=== PATIENT | female | born 1985 | race Caucasian/White ===

== ENCOUNTER 2017-01-21 22:38 | Emergency (ER) | payer OTHER ==
[~2017-01-21] VITALS: Ht 175.3 cm; Wt 137.8 kg
[2017-01-21 23:44] LABS: BILIRUBIN,URINE NEG (NEG); CLARITY,URINE CLOUDY; COLOR,URINE RED; GLUCOSE,URINE NEG (NEG)
[2017-01-21 23:45] LABS: BACTERIA,URINE 0 /HPF (0-FEW); NITRITE,URINE NEG (NEG); RBC,URINE TNTC /HPF (0-2); SQUAMOUS EPITHELIAL CELL,UR OCC /LPF; UROBILINOGEN,URINE 0.2 mg/dL (0.2 mg/dL); WBC,URINE OCC /HPF (0-4)
[2017-01-21 23:46] LABS: U PREG PATIENT NEGATIVE (NEG)
[2017-01-22 01:22] LABS: BASO # 0.1 x10^3/uL (0.0-0.2); BASO % 1 % (0-3); EOS % 0 % (0-3); HEMATOCRIT 34.2 % (36.0-47.0); HEMOGLOBIN 10.9 g/dL (12.0-15.5); LYMPH # 3.4 x10^3/uL (1.0-4.8); LYMPH % 33 % (24-48); MEAN CORPUSCULAR HEMOGLOBIN 24 pg (25-35); MEAN CORPUSCULAR HGB CONC 32 g/dL (31-37); MEAN CORPUSCULAR VOLUME 74 fL (79-100); MONO # 0.5 x10^3/uL (0.0-1.1); MONO % 4 % (0-9); NEUT # 6.4 x10^3uL (1.8-7.7); NEUT % 62 % (31-73); PLATELET COUNT 347 x10^3/uL (140-400); WHITE BLOOD COUNT 10.4 x10^3/uL (4.0-11.0)
[2017-01-22 01:25] LABS: CALCIUM 8.8 mg/dL (8.5-10.1); CREATININE 0.7 mg/dL (0.6-1.0); GFR 98.3
[2017-01-22 01:49] VITALS: BP 143/85
--- NOTE | 2017-01-22 03:11 | ED.ADGEN ---
Adult General [facility] HPI Patient is a 31-year-old woman, history of PCOS, for which takes control pills, and anemia secondary to vaginal bleeding, presents to the emergency department with a complaint of heavy vaginal bleeding over the past 3 days. Patient states that she has been taking Notrelle control, 3 tablets daily as directed by her primary care provider, Dr. Veras, without improvement of symptoms. She states that she is soaking through both tampons and pads she is using together, sometimes in about an hour and a half. Patient states that she has felt slightly lightheaded with the bleeding, but denies any syncope, denies any chest pain or shortness breath, any nausea or vomiting. Is experiencing cramping pains in her lower abdomen. She denies any injuries, any urinary complaints, any concerns for STI exposures. She states she has not spoken her primary care provider about these episodes of bleeding. She states that her hemoglobin tends to run in the nines and that she last was transfused several years ago after similar episodes of vaginal bleeding. Review of Systems Review of Systems Constitutional: Denies fever or chills [] Eyes: Denies change in visual acuity, redness, or eye pain [] HENT: Denies nasal congestion or sore throat [] Respiratory: Denies cough or shortness of breath [] Cardiovascular: No additional information not addressed in HPI [] GI: Denies nausea, vomiting, bloody stools or diarrhea. Abdominal cramping, vaginal bleeding. : Denies dysuria or hematuria [] Musculoskeletal: Denies back pain or joint pain [] Integument: Denies rash or skin lesions [] Neurologic: Denies headache, focal weakness or sensory changes [] Endocrine: Denies polyuria or polydipsia [] Allergies Allergies Allergies Coded Allergies Type Severity Reaction Last Updated Verified No Known Drug Allergies 01/22/17 No Physical Exam Physical Exam Constitutional: Well developed, well nourished, no acute distress, non-toxic appearance. [] HENT: Normocephalic, atraumatic, bilateral external ears normal, oropharynx moist, no oral exudates, nose normal. [] Eyes: PERRLA, EOMI, conjunctiva normal, no discharge. [] Neck: Normal range of motion, no tenderness, supple, no stridor. [] Cardiovascular:Heart rate regular rhythm, no murmur, S1, S2, no rubs or gallops. [] Lungs & Thorax: Bilateral breath sounds clear to auscultation no wheezing, rhonchi, rales. No chest wall crepitus or tenderness. [] Abdomen: Bowel sounds normal, soft, obese, mild initial patient in the pelvic region, no rebound, rigidity, no guarding, no masses, no pulsatile masses. [] Skin: Warm, dry, no erythema, no rash. [] Back: No tenderness, no CVA tenderness. [] Extremities: No tenderness, no cyanosis, no clubbing, ROM intact, no edema. [] Neurologic: Alert and oriented X 3, normal motor function, normal sensory function, no focal deficits noted. [] Psychologic: Affect normal, judgement normal, mood normal. [] examination: Patient noted to have small amount of dark clot in the labia minora, no signs of trauma, no lesions, external examination is otherwise unremarkable. Bimanual examination reveals dark blood on glove, tenderness to palpation but no CMT, with motion of the uterus. Os is open, internal and external, fingertip. Speculum examination reveals a small amount of dark clots in the vaginal vault, cleared with the Q-tip, os is normal in appearance, no signs of lesions or trauma. No active bleeding during my examination. Current Patient Data Lab Results Laboratory Tests Test 01/21/17 22:52 01/22/17 00:40 Urine Collection Type Unknown Urine Color Red Urine Clarity Cloudy Urine pH 6.0 Urine Specific [place] >=1.030 Urine Protein >100 mg/dl (NEG-TRACE) Urine Glucose (UA) Neg mg/dL (NEG) Urine Ketones (Stick) Neg mg/dL (NEG) Urine Blood Large (NEG) Urine Nitrite Neg (NEG) Urine Bilirubin Neg (NEG) Urine Urobilinogen Dipstick 0.2 mg/dL (0.2 mg/dL) Urine Leukocyte Esterase Trace (NEG) Urine RBC Tntc /HPF (0-2) Urine WBC Occ /HPF (0-4) Urine Squamous Epithelial Cells Occ /LPF Urine Bacteria 0 /HPF (0-FEW) Urine Test Negative (NEG) White Blood Count 10.4 x10^3/uL (4.0-11.0) Red Blood Count 4.60 x10^6/uL (3.50-5.40) Hemoglobin 10.9 g/dL (12.0-15.5) L Hematocrit 34.2 % (36.0-47.0) L Mean Corpuscular Volume 74 fL (79-100) L Mean Corpuscular Hemoglobin 24 pg (25-35) L Mean Corpuscular Hemoglobin Concent 32 g/dL (31-37) Red Cell Distribution Width 17.0 % (11.5-14.5) H Platelet Count 347 x10^3/uL (140-400) Neutrophils (%) (Auto) 62 % (31-73) Lymphocytes (%) (Auto) 33 % (24-48) Monocytes (%) (Auto) 4 % (0-9) Eosinophils (%) (Auto) 0 % (0-3) Basophils (%) (Auto) 1 % (0-3) Neutrophils # (Auto) 6.4 x10^3uL (1.8-7.7) Lymphocytes # (Auto) 3.4 x10^3/uL (1.0-4.8) Monocytes # (Auto) 0.5 x10^3/uL (0.0-1.1) Eosinophils # (Auto) 0.0 x10^3/uL (0.0-0.7) Basophils # (Auto) 0.1 x10^3/uL (0.0-0.2) Sodium Level 140 mmol/L (136-145) Potassium Level 4.0 mmol/L (3.5-5.1) Chloride Level 105 mmol/L (98-107) Carbon Dioxide Level 23 mmol/L (21-32) Anion Gap 12 (6-14) Blood Urea Nitrogen 9 mg/dL (7-20) Creatinine 0.7 mg/dL (0.6-1.0) Estimated GFR (Cockcroft-Gault) 98.3 Glucose Level 138 mg/dL (70-99) H Calcium Level 8.8 mg/dL (8.5-10.1) EKG EKG [] Radiology/Procedures Radiology/Procedures [] Course & Med Decision Making Course & Med Decision Making Pertinent Labs and Imaging studies reviewed. (See chart for details) I was able to clear the clots from the vaginal vault, however as soon as the patient stood back up, additional bleeding recur, os was open as stated. Patient 's hemoglobin resulted at 10.9, laboratory studies otherwise unremarkable aside from a glucose of 138, mildly elevated. I did discuss these findings with the patient, she is relieved to know that she will not require transfusion at this time, but continues to have bleeding from the vagina. No orthostasis, is well- appearing, and stable in the ED. I did speak with Dr. Rodriguez of [employer] [employer], discussed the fact of the patient's history of anemia, previous transfusion, currently alone, and persistence of bleeding with history of PCOS on the contraceptive pills, and 3 pills daily. He recommended the patient be admitted for IV estrogen. As the patient is stable in the emergency department, to be appropriate to discharge the patient from the emergency department, and have her present to [facility], he requested that the front office attendant staff in contact him for admission orders. I did discuss this with the patient and family at bedside, she is agreeable this plan, she remained stable in the emergency department, was instructed to proceed directly to [facility] for admission with plan as above. Patient discharged with her family with plan for admission as stated. Final Impression Final Impression [] Problems: Dragon Disclaimer Dragon Disclaimer This electronic medical record was generated, in whole or in part, using a voice recognition dictation system. Departure: Impression: Primary Impression: Dysfunctional uterine bleeding Additional Impressions: PCOS (polycystic ovarian syndrome) History of anemia Disposition: 01 HOME, SELF-CARE Condition: STABLE TIMI SERRANO DO Jan 22, 2017 03:11
== END 2017-01-22 01:56 | disposition home or self-care (01) ==
LOC: ER 22:38
DX: E28.2 Polycystic ovarian syndrome (principal); R42 Dizziness and giddiness; Z86.2 Personal history of diseases of the blood and blood-forming organs and certain disorders involving the immune mechanism
CPT/HCPCS: 36415; 80048; 81001; 81025; 85027; 99284

== ENCOUNTER 2017-08-20 13:05 | Emergency (ER) | payer OTHER ==
[~2017-08-20] VITALS: Ht 167.6 cm; Wt 132.4 kg
[2017-08-20] MEDS ORDERED: IV NORMAL SALINE 1,000ML 1,000 ML IV SCH (13:48)
[2017-08-20 14:17] LABS: BASO % 0 % (0-3); EOS % 0 % (0-3); HEMATOCRIT 32.8 % (36.0-47.0); HEMOGLOBIN 10.6 g/dL (12.0-15.5); LYMPH % 33 % (24-48); MEAN CORPUSCULAR HEMOGLOBIN 24 pg (25-35); MEAN CORPUSCULAR HGB CONC 32 g/dL (31-37); MEAN CORPUSCULAR VOLUME 74 fL (79-100); MONO # 0.5 x10^3/uL (0.0-1.1); MONO % 6 % (0-9); NEUT # 5.7 x10^3uL (1.8-7.7); NEUT % 61 % (31-73); PLATELET COUNT 375 x10^3/uL (140-400); RED BLOOD COUNT 4.46 x10^6/uL (3.50-5.40); RED CELL DISTRIBUTION WIDTH 16.3 % (11.5-14.5); WHITE BLOOD COUNT 9.2 x10^3/uL (4.0-11.0)
[2017-08-20 14:33] LABS: PREG TEST PT QUAL NEGATIVE (NEG)
[2017-08-20 14:36] LABS: ALBUMIN 3.3 g/dL (3.4-5.0); ALBUMIN/GLOBULIN RATIO 0.7 (1.0-1.7); CREATININE 0.7 mg/dL (0.6-1.0); GFR 97.6; POTASSIUM 3.8 mmol/L (3.5-5.1); TOTAL BILIRUBIN 0.3 mg/dL (0.2-1.0); TOTAL PROTEIN 7.8 g/dL (6.4-8.2)
[2017-08-20] MEDS ORDERED: HYDROcodone/APAP 5/325MG 1 TAB TABLET PO ONE (15:00)
--- NOTE | 2017-08-20 16:45 | RAD ---
EXAM: Pelvic sonogram. HISTORY: Heavy vaginal bleeding. TECHNIQUE: Transabdominal and transvaginal sonographic imaging of the pelvis was performed. COMPARISON: 01/22/2017. FINDINGS: The uterus measures 9.1 x 4.7 x 3.6 cm. The endometrium is diffusely heterogeneous and measures 6.8 mm in thickness. There is heterogeneous mobile debris within the endometrial cavity, likely due to blood products. There are nabothian cysts within the cervix, the largest of which measures 8 mm. The right ovary measures 5.5 x 4.9 x 3.1 cm and contains a 2.6 cm cyst. The left ovary measures 4.1 x 2.9 x 3.6 cm. There is normal blood flow within both ovaries. There is no pelvic free fluid. IMPRESSION: 1. Diffusely heterogeneous endometrium and mobile debris within the endometrial cavity due to blood products. This is consistent with reported heavy vaginal bleeding. No clear endometrial mass is seen. 2. 2.6 cm right ovarian cyst. 3. Nabothian cysts within the cervix. Electronically signed by: Katie Hernandez MD (08/20/2017 4:42 PM) [place] [id number]
[2017-08-20 17:00] VITALS: BP 143/77
[2017-08-20] MEDS ORDERED: FERR-26 PO (17:06)
[2017-08-20] MEDS ORDERED: NAPR-683 PO (17:06)
[2017-08-20] MEDS ORDERED: HYDR-971 PO (17:06)
--- NOTE | 2017-08-20 17:06 | PHYS DOC ---
Past History Past Medical History: Anemia, Other Past Surgical History: No Surgical History Alcohol Use: None Drug Use: None Adult General Chief Complaint Chief Complaint: VAGINAL BLEEDING HPI HPI 32-year-old female patient with history of PCO and dysfunctional uterine bleeding and anemia state she started her menstruation 3 days ago at her usual date with heavy vaginal bleeding and passing blood clots and lower abdominal cramping pain. Patient states she had abnormal vaginal bleeding previously but this time her bleeding is more than her usual. Patient complaining of generalized weakness without focal neurodeficit and palpitation and shortness of breath. Review of Systems Review of Systems Constitutional: Denies fever or chills [] Eyes: Denies change in visual acuity, redness, or eye pain [] HENT: Denies nasal congestion or sore throat [] Respiratory: Denies cough or shortness of breath [] Cardiovascular: No additional information not addressed in HPI [] GI: Denies abdominal pain, nausea, vomiting, bloody stools or diarrhea [] : Denies dysuria or hematuria , reports vaginal bleeding[] Musculoskeletal: Denies back pain or joint pain [] Integument: Denies rash or skin lesions [] Neurologic: Denies headache, focal weakness or sensory changes [] Endocrine: Denies polyuria or polydipsia [] All other systems were reviewed and found to be within normal limits, except as documented in this note. Current Medications Current Medications Current Medications Medications (Trade) Dose Ordered Sig/Ana Start Time Stop Time Status Last Admin Dose Admin Acetaminophen/ Hydrocodone Bitart (Lortab 5/325) 2 tab 1X ONCE 08/20/17 15:00 08/20/17 15:01 DC 08/20/17 15:00 2 TAB Sodium Chloride 1,000 ml @ 1,000 mls/hr Q1H 08/20/17 13:48 08/20/17 14:47 DC Allergies Allergies Allergies Coded Allergies Type Severity Reaction Last Updated Verified No Known Drug Allergies 01/22/17 No Physical Exam Physical Exam Constitutional: Well developed, well nourished,mild distress, non-toxic appearance, morbidly obese. [] HENT: Normocephalic, atraumatic, bilateral external ears normal, oropharynx moist, no oral exudates, nose normal. [] Eyes: PERRLA, EOMI, conjunctiva normal, no discharge. [] Neck: Normal range of motion, no tenderness, supple, no stridor. [] Cardiovascular:Heart rate regular rhythm, no murmur [] Lungs & Thorax: Bilateral breath sounds clear to auscultation [] Abdomen: Bowel sounds normal, soft, no tenderness, no masses, no pulsatile masses. [] Skin: Warm, dry, no erythema, no rash. [] Back: No tenderness, no CVA tenderness. [] Extremities: No tenderness, no cyanosis, no clubbing, ROM intact, no edema. [] Neurologic: Alert and oriented X 3, normal motor function, normal sensory function, no focal deficits noted. [] Psychologic: Affect normal, judgement normal, mood normal. [] Patient did not want to have vaginal exam Current Patient Data Vital Signs Vital Signs Date Time Temp Pulse Resp B/P (MAP) Pulse Ox O2 Delivery O2 Flow Rate FiO2 08/20/17 15:00 20 95 Lab Results Laboratory Tests Test 08/20/17 14:06 White Blood Count 9.2 x10^3/uL (4.0-11.0) Red Blood Count 4.46 x10^6/uL (3.50-5.40) Hemoglobin 10.6 g/dL (12.0-15.5) L Hematocrit 32.8 % (36.0-47.0) L Mean Corpuscular Volume 74 fL (79-100) L Mean Corpuscular Hemoglobin 24 pg (25-35) L Mean Corpuscular Hemoglobin Concent 32 g/dL (31-37) Red Cell Distribution Width 16.3 % (11.5-14.5) H Platelet Count 375 x10^3/uL (140-400) Neutrophils (%) (Auto) 61 % (31-73) Lymphocytes (%) (Auto) 33 % (24-48) Monocytes (%) (Auto) 6 % (0-9) Eosinophils (%) (Auto) 0 % (0-3) Basophils (%) (Auto) 0 % (0-3) Neutrophils # (Auto) 5.7 x10^3uL (1.8-7.7) Lymphocytes # (Auto) 3.0 x10^3/uL (1.0-4.8) Monocytes # (Auto) 0.5 x10^3/uL (0.0-1.1) Eosinophils # (Auto) 0.0 x10^3/uL (0.0-0.7) Basophils # (Auto) 0.0 x10^3/uL (0.0-0.2) Prothrombin Time 10.3 SEC (9.4-11.4) Prothrombin Time INR 1.0 (0.9-1.1) Sodium Level 141 mmol/L (136-145) Potassium Level 3.8 mmol/L (3.5-5.1) Chloride Level 107 mmol/L (98-107) Carbon Dioxide Level 23 mmol/L (21-32) Anion Gap 11 (6-14) Blood Urea Nitrogen 10 mg/dL (7-20) Creatinine 0.7 mg/dL (0.6-1.0) Estimated GFR (Cockcroft-Gault) 97.6 BUN/Creatinine Ratio 14 (6-20) Glucose Level 172 mg/dL (70-99) H Calcium Level 9.0 mg/dL (8.5-10.1) Total Bilirubin 0.3 mg/dL (0.2-1.0) Aspartate Amino Transferase (AST) 40 U/L (15-37) H Alanine Aminotransferase (ALT) 71 U/L (14-59) H Alkaline Phosphatase 77 U/L (46-116) Total Protein 7.8 g/dL (6.4-8.2) Albumin 3.3 g/dL (3.4-5.0) L Albumin/Globulin Ratio 0.7 (1.0-1.7) L Serum Test, Qualitative Negative (NEG) EKG EKG [] Radiology/Procedures Radiology/Procedures [] Course & Med Decision Making Course & Med Decision Making Pertinent Labs and Imaging studies reviewed. (See chart for details) Evaluation of patient in ER showed 32-year-old female patient with complaining of abnormal vaginal bleeding with heavy bleeding for the last 3 days. Patient had unremarkable physical exam except for morbid obesity. Labs showed hemoglobin of 10.6 with history of anemia without previous lab to compare. Pelvic ultrasound showed loss of blood clotting tenderness without myoma or acute finding in aureus. Patient psychiatric to follow-up with her INDEXER and take [id number] iron pills and increase fluid intake. Dragon Disclaimer Dragon Disclaimer This electronic medical record was generated, in whole or in part, using a voice recognition dictation system. Departure Departure: Impression: Primary Impression: Dysfunctional uterine bleeding Additional Impressions: Anemia Morbid obesity Polycystic ovarian disease Disposition: HOME, SELF-CARE (At 1702) Condition: IMPROVED Referrals: MASON MELENDEZ DO (PCP) Patient Instructions: Uterine Bleeding, Dysfunctional Additional Instructions: Follow-up with your INDEXER in 2 or 3 days Drink plenty of liquids Return if not getting better Scripts Ferrous Sulfate (FERROUS SULFATE) 325 Mg Tablet 325 MG PO TID, #90 TAB Prov: TRICIA HUMMEL MD 08/20/17 Hydrocodone Bit/Acetaminophen (NORCO 5-325 TABLET) 1 Each Tablet 1 TAB PO PRN Q6HRS Y for PAIN, #14 TAB 0 Refills Prov: TRICIA HUMMEL MD 08/20/17 Naproxen (NAPROSYN) 500 Mg Tablet 1 TAB PO BID, #20 TAB 2 Refills Prov: TRICIA HUMMEL MD 08/20/17 Problem Qualifiers TRICIA HUMMEL MD Aug 20, 2017 17:06
== END 2017-08-20 17:15 | disposition home or self-care (01) ==
LOC: ER 13:05
DX: N93.8 Other specified abnormal uterine and vaginal bleeding (principal); D64.9 Anemia, unspecified; E28.2 Polycystic ovarian syndrome; E66.01 Morbid (severe) obesity due to excess calories; Z68.42 Body mass index [BMI] 45.0-49.9, adult
CPT/HCPCS: 36415; 76830; 76856; 80053; 84703; 85025; 85610; 99285-25

== ENCOUNTER 2017-08-30 15:50 | Emergency (ER) | payer OTHER ==
[~2017-08-30 15:50] MED LIST: FERR-26 PO; HYDR-971 PO; NAPR-683 PO
--- NOTE | 2017-08-30 16:00 | PHYS DOC ---
General Chief Complaint: VAGINAL BLEEDING Stated Complaint: VAGINAL BLEEDING Time Seen by MD: 15:54 Source: patient, old records Exam Limitations: no limitations Problems: History of Present Illness Initial Comments Patient is a 32-year-old female who comes to the ED with dysfunctional uterine bleeding. Patient was seen in this emergency department August 20 of this year for the same, at that time her hemoglobin was stable coags were normal and pelvic ultrasound was unremarkable. Patient has long history of polycystic ovarian syndrome and dysfunctional uterine bleeding however apparently August 16, her normal day to begin menstruation symptoms were worse than normal. She was discharged home with prescriptions for Naprosyn, hydrocodone, and iron replacement. She was advised to follow-up with a research study assistant within 2-3 days however states that she's had difficulty getting an appointment. She was seen by her PCP Dr. Melendez on August 24 and labs were rechecked, her hemoglobin had reportedly dropped 2 points to 8.2. She has an upcoming TEACHERS AIDE appointment with Dr. Galo later this month but feels that's too long to wait. She denies any new or progressive symptoms, no lightheadedness palpitations dizziness chest pain trouble breathing headache dyspnea on exertion or vision changes. ED vital signs are unremarkable I have attached the ultrasound report from last week's visit below. PATIENT: LINDA ALEMAN ACCOUNT: [id number] : 1985 LOCATION: ER AGE: 32 SEX: F EXAM STATUS: REG ER ORD. PHYSICIAN: TRICIA HUMMEL MD REASON: abnormal vaginal bleeding PROCEDURE: US PELVIS W/TV EXAM: Pelvic sonogram. HISTORY: Heavy vaginal bleeding. TECHNIQUE: Transabdominal and transvaginal sonographic imaging of the pelvis was performed. COMPARISON: 01/22/2017. FINDINGS: The uterus measures 9.1 x 4.7 x 3.6 cm. The endometrium is diffusely heterogeneous and measures 6.8 mm in thickness. There is heterogeneous mobile debris within the endometrial cavity, likely due to blood products. There are nabothian cysts within the cervix, the largest of which measures 8 mm. The right ovary measures 5.5 x 4.9 x 3.1 cm and contains a 2.6 cm cyst. The left ovary measures 4.1 x 2.9 x 3.6 cm. There is normal blood flow within both ovaries. There is no pelvic free fluid. IMPRESSION: 1. Diffusely heterogeneous endometrium and mobile debris within the endometrial cavity due to blood products. This is consistent with reported heavy vaginal bleeding. No clear endometrial mass is seen. 2. 2.6 cm right ovarian cyst. 3. Nabothian cysts within the cervix. Electronically signed by: Katie Merritt MD (08/20/2017 4:42 PM) [place] [id number] DICTATED AND SIGNED BY: KATIE MERRITT MD DATE: 08/20/17 0449 CC: MASON MELENDEZ DO; TRICIA HUMMEL MD ~ Timing/Duration: other Severity: moderate Modifying Factors: improves with other (objective) Associated Symptoms: other Allergies: Coded Allergies: No Known Drug Allergies (Unverified , 01/22/17) Past Medical History Medical History: other (PCOS, DUB, anemia) Surgical History: noncontributory Social History Smoker: non-smoker Alcohol: none Drugs: none Review of Systems Constitutional: denies chills, denies diaphoresis, denies fever, denies malaise (and) EENTM: denies blurred vision, denies double vision, denies ear pain, denies nose pain Respiratory: denies cough, denies shortness of breath, denies wheezing Cardiovascular: denies chest pain, denies palpitations, denies syncope Gastrointestinal: see HPI, denies nausea, denies vomiting Genitourinary: see HPI, denies frequency, denies hematuria Musculoskeletal: denies back pain, denies muscle pain, denies neck pain Psychiatric/Neurological: denies headache, denies numbness, denies paresthesia Physical Exam General Appearance: no apparent distress, obese Eyes: bilateral eye normal inspection, bilateral eye PERRL, bilateral eye EOMI Ear, Nose, Throat: hearing grossly normal, normal ENT inspection Neck: non-tender, supple Respiratory: normal breath sounds, no respiratory distress Cardiovascular: normal peripheral pulses, regular rate, rhythm Gastrointestinal: non tender, soft Rectal: deferred Back: no CVA tenderness, no vertebral tenderness Orders, Labs, Meds hemoglobin 9.9 otherwise i-STAT basic unremarkable. Patient reassured hemoglobin is actually improved from last visit. I explained to her that although her current symptoms were very frustrated and uncomfortable that they did not represent an actual medical emergency. I provided contact information to Dr. Bowen as, being new to the area his schedule may not be booked far in advance. I also encouraged her to follow-up with Dr. Melendez later this week for recheck of hemoglobin and glucose. Signs and symptoms to monitor for as well as indications for urgent return to the department were discussed and the patient's questions were answered she expressed agreement and understanding of treatment plan. Departure Time of Disposition: 16:48 Disposition: 01 HOME, SELF-CARE Diagnosis: dysfunctional uterine bleeding, anemia Condition: GOOD Patient Instructions: Anemia, Nonspecific-Brief, Uterine Bleeding, Dysfunctional, [id number] Additional Instructions: As discussed hemoglobin recheck 9.9 in the emergency department today. Continue current treatment. Additionally as discussed Dr. Bowen's [facility] office was closed for the day. Call [phone] at the beginning of business hours tomorrow morning to schedule an appointment if available before September 17. Follow-up with Dr. Melendez in 3-5 days for recheck. Return to ED with new or changing symptoms. RENITA CASTANO DO Aug 30, 2017 16:00
[2017-08-30 16:30] LABS: HEMOGLOBIN ISTAT 9.9 gm/dL; POTASSIUM ISTAT 3.8 mmol/L (3.5-5.0)
[2017-08-30 17:26] VITALS: BP 141/65
== END 2017-08-30 17:26 | disposition home or self-care (01) ==
LOC: ER 15:50
DX: N93.8 Other specified abnormal uterine and vaginal bleeding (principal); D64.9 Anemia, unspecified; E28.2 Polycystic ovarian syndrome
CPT/HCPCS: 36415; 80047; 85014; 85018; 99284

== ENCOUNTER 2017-12-12 21:36 | Emergency (ER) | payer OTHER ==
[~2017-12-12] VITALS: Ht 167.6 cm; Wt 140.4 kg
[~2017-12-12 21:36] MED LIST changes: -FERR-26 PO; +FERR325T14 PO
--- NOTE | 2017-12-12 21:43 | ED.ADGEN ---
Past History Past Medical History: Anemia, Other Past Surgical History: No Surgical History Alcohol Use: None Drug Use: None Adult General Chief Complaint Chief Complaint ".. I got this vaginal discharge.. and my private parts are all swollen..." " I tried some over the counter meds.. and it just made me burn..." HPI HPI Patient is a 32 year old female who presents with above hx and complaints vaginal discharge, swollen labia, dysuria and pain. Pt. denies prior STD. Has had prior vaginal yeast infection. Hx. Life time Sex partners 3. Denies hx of DM. Pt. denies any travel or specific ill contacts. Denies hx of immunosuppression. Pt. normally follows with Dr. Veras. Has been tx. ed with Metformin for PCOS and irregular periods. Recently stopped the Metformin 1000 mg bid. Pt. did have a high caloric intake just before arrival. Review of Systems Review of Systems Constitutional: Denies fever or chills [] Eyes: Denies change in visual acuity, redness, or eye pain [] HENT: Denies nasal congestion or sore throat [] Respiratory: Denies cough or shortness of breath [] Cardiovascular: No additional information not addressed in HPI [] GI: Denies abdominal pain, nausea, vomiting, bloody stools or diarrhea [] : Hx. of dysuria or hematuria []Complaints of Vaginal discharge Musculoskeletal: Denies back pain or joint pain [] Integument: Denies rash or skin lesions [] Neurologic: Denies headache, focal weakness or sensory changes [] Endocrine: Hx. polyuria or polydipsia [] All other systems were reviewed and found to be within normal limits, except as documented in this note. Family History Family History Father had DM at age 31. Current Medications Current Medications Current Medications Medications (Trade) Dose Ordered Sig/Ana Start Time Stop Time Status Last Admin Dose Admin Azithromycin (Zithromax) 1,000 mg 1X ONCE 12/12/17 22:30 12/12/17 22:31 DC 12/12/17 23:32 1,000 MG Ceftriaxone Sodium (Rocephin Im) 1 gm 1X ONCE 12/12/17 22:30 12/12/17 22:31 DC 12/12/17 23:33 1 GM Fluconazole (Diflucan) 100 mg 1X ONCE 12/12/17 22:45 5/20/18 22:46 DC 12/12/17 23:32 100 MG Hydrocodone Bitartrate/ Ibuprofen (Vicoprofen 7.5-200) 2 tab 1X ONCE 12/12/17 23:30 12/12/17 23:42 DC 12/12/17 23:33 2 TAB Metronidazole (Flagyl) 2,000 mg 1X ONCE 12/12/17 22:30 12/12/17 22:31 DC 12/12/17 23:32 2,000 MG Ondansetron HCl (Zofran Odt) 8 mg 1X ONCE 12/12/17 22:30 12/12/17 22:31 DC 12/12/17 23:31 8 MG See Nursing for home meds. Allergies Allergies Allergies Coded Allergies Type Severity Reaction Last Updated Verified No Known Drug Allergies 01/22/17 No Physical Exam Physical Exam Constitutional: in acute distress, non-toxic appearance. [] HENT: Normocephalic, atraumatic, bilateral external ears normal, oropharynx moist, no oral exudates, nose normal. [] Eyes: PERRLA, EOMI, conjunctiva normal, no discharge. [] Neck: Normal range of motion, no tenderness, supple, no stridor. [] Cardiovascular:Heart rate regular rhythm, no murmur [] Lungs & Thorax: Bilateral breath sounds clear to auscultation [] Abdomen: Bowel sounds normal, soft, no tenderness, no masses, no pulsatile masses. [] Morbid obesity. Yeast like lesions in abd. pannus. Vaginal labia very swollen, white discharge, cervicitis, cervical motion tenderness. Skin: Warm, dry, no erythema, no rash. [] Back: No tenderness, no CVA tenderness. [] Extremities: No tenderness, no cyanosis, no clubbing, ROM intact, no edema. [] Neurologic: Alert and oriented X 3, normal motor function, normal sensory function, no focal deficits noted. [] Psychologic: Affect normal, judgement normal, mood normal. [] Current Patient Data Vital Signs Vital Signs Date Time Temp Pulse Resp B/P (MAP) Pulse Ox O2 Delivery O2 Flow Rate FiO2 12/12/17 21:40 98.4 115 18 98 Room Air Lab Results Laboratory Tests Test 12/12/17 21:15 12/12/17 22:00 12/12/17 23:18 POC Urine HCG, Qualitative hcg negative (Negative) Urine Collection Type Unknown Urine Color Yellow Urine Clarity Cloudy Urine pH 6.0 Urine Specific [place] 1.015 Urine Protein Neg (NEG-TRACE) Urine Glucose (UA) >=1000 mg/dL (NEG) Urine Ketones (Stick) Neg mg/dL (NEG) Urine Blood Trace (NEG) Urine Nitrite Neg (NEG) Urine Bilirubin Neg (NEG) Urine Urobilinogen Dipstick 0.2 mg/dL (0.2 mg/dL) Urine Leukocyte Esterase Small (NEG) Urine RBC 6-10 /HPF (0-2) Urine WBC 5-10 /HPF (0-4) Urine Squamous Epithelial Cells Many /LPF Urine Bacteria Few /HPF (0-FEW) Urine Yeast Present /HPF Urine Opiates Screen Neg (NEG) Urine Methadone Screen Neg (NEG) Urine Barbiturates Neg (NEG) Urine Phencyclidine Screen Neg (NEG) Urine Amphetamine/Methamphetamine Neg (NEG) Urine Benzodiazepines Screen Neg (NEG) Urine Cocaine Screen Neg (NEG) Urine Cannabinoids Screen Neg (NEG) Urine Ethyl Alcohol Neg (NEG) White Blood Count 9.4 x10^3/uL (4.0-11.0) Red Blood Count 4.96 x10^6/uL (3.50-5.40) Hemoglobin 11.4 g/dL (12.0-15.5) L Hematocrit 35.4 % (36.0-47.0) L Mean Corpuscular Volume 71 fL (79-100) L Mean Corpuscular Hemoglobin 23 pg (25-35) L Mean Corpuscular Hemoglobin Concent 32 g/dL (31-37) Red Cell Distribution Width 17.2 % (11.5-14.5) H Platelet Count 336 x10^3/uL (140-400) Neutrophils (%) (Auto) 67 % (31-73) Lymphocytes (%) (Auto) 28 % (24-48) Monocytes (%) (Auto) 4 % (0-9) Eosinophils (%) (Auto) 1 % (0-3) Basophils (%) (Auto) 1 % (0-3) Neutrophils # (Auto) 6.3 x10^3uL (1.8-7.7) Lymphocytes # (Auto) 2.6 x10^3/uL (1.0-4.8) Monocytes # (Auto) 0.4 x10^3/uL (0.0-1.1) Eosinophils # (Auto) 0.1 x10^3/uL (0.0-0.7) Basophils # (Auto) 0.1 x10^3/uL (0.0-0.2) Platelet Estimate Adequate (ADEQUATE) Hypochromasia Slight Anisocytosis Slight Microcytosis Mod Sodium Level 135 mmol/L (136-145) L Potassium Level 4.0 mmol/L (3.5-5.1) Chloride Level 99 mmol/L (98-107) Carbon Dioxide Level 24 mmol/L (21-32) Anion Gap 12 (6-14) Blood Urea Nitrogen 8 mg/dL (7-20) Creatinine 0.9 mg/dL (0.6-1.0) Estimated GFR (Cockcroft-Gault) 73.0 Glucose Level 415 mg/dL (70-99) H Calcium Level 9.0 mg/dL (8.5-10.1) Total Bilirubin 0.3 mg/dL (0.2-1.0) Direct Bilirubin 0.1 mg/dL (0.0-0.2) Aspartate Amino Transferase (AST) 74 U/L (15-37) H Alanine Aminotransferase (ALT) 97 U/L (14-59) H Alkaline Phosphatase 102 U/L (46-116) Total Protein 7.8 g/dL (6.4-8.2) Albumin 3.3 g/dL (3.4-5.0) L Microbiology 12/12/17 Wet Prep - Final, Complete EKG EKG [] Radiology/Procedures Radiology/Procedures [] Course & Med Decision Making Course & Med Decision Making Pertinent Labs and Imaging studies reviewed. (See chart for details). Pt. declines admission at this time. Pt. resumed Metformin 500 mg day, increase weekly by 500mg. Max 2000 mg a day. Diabetic diet. Must follow up. Return if any concerns. Keflex 500 three times a day. Diflucan 100 daily after complete the Diflucan. Push fluids. Must follow up cultures and pending labs. Review tx. options with Dr. Veras for DM. [] Final Impression Final Impression 1. UTI 2. Yeast Infection Vaginal 3. Cervicitis 4. DM- Hyperglycemia[]- 415 5. Anemia 6. Elevated AST/ALT 7. Hyponatremia Dragon Disclaimer Dragon Disclaimer This electronic medical record was generated, in whole or in part, using a voice recognition dictation system. CHEN LY MD December 12, 2017 21:43
[2017-12-12] MEDS ORDERED: metroNIDAZOLE 500 MG TABLET PO ONE (22:30)
[2017-12-12] MEDS ORDERED: ONDANSETRON ODT 4 MG TAB.RAPDIS PO ONE (22:30)
[2017-12-12] MEDS ORDERED: AZITHROMYCIN 250 MG TABLET. PO ONE (22:30)
[2017-12-12] MEDS ORDERED: cefTRIAXone IM 1 GM VIAL IM ONE (22:30)
[2017-12-12 22:33] LABS: CLARITY,URINE CLOUDY; COLOR,URINE YELLOW
[2017-12-12 22:34] LABS: BACTERIA,URINE FEW /HPF (0-FEW); BILIRUBIN,URINE NEG (NEG); GLUCOSE,URINE >=1000 mg/dL (NEG); NITRITE,URINE NEG (NEG); SQUAMOUS EPITHELIAL CELL,UR MANY /LPF; UROBILINOGEN,URINE 0.2 mg/dL (0.2 mg/dL); YEAST,URINE PRESENT /HPF
[2017-12-12] MEDS ORDERED: FLUC100T7 PO (22:36)
[2017-12-12] MEDS ORDERED: CEPH-264 PO (22:36)
[2017-12-12] MEDS ORDERED: FLUCONAZOLE 100 MG TABLET. PO ONE (22:45)
[2017-12-12 22:49] LABS: BARBITURATES NEG (NEG); BENZODIAZEPINES NEG (NEG); CANNABINOIDS NEG (NEG); COCAINE NEG (NEG); METHADONE NEG (NEG); OPIATES NEG (NEG); PHENCYCLIDINE NEG (NEG)
[2017-12-12 22:50] LABS: AMPHETAMINE/METHAMPHETAMINE NEG (NEG)
[2017-12-12] MEDS ORDERED: HYDR-79 PO (23:26)
[2017-12-12] MEDS ORDERED: HYDROcodon/IBUPROFEN 7.5/200MG 1 TAB TABLET PO ONE (23:30)
[2017-12-12 23:38] LABS: BASO # 0.1 x10^3/uL (0.0-0.2); BASO % 1 % (0-3); EOS # 0.1 x10^3/uL (0.0-0.7); EOS % 1 % (0-3); HEMATOCRIT 35.4 % (36.0-47.0); HEMOGLOBIN 11.4 g/dL (12.0-15.5); LYMPH # 2.6 x10^3/uL (1.0-4.8); LYMPH % 28 % (24-48); MEAN CORPUSCULAR HEMOGLOBIN 23 pg (25-35); MEAN CORPUSCULAR HGB CONC 32 g/dL (31-37); MEAN CORPUSCULAR VOLUME 71 fL (79-100); MONO # 0.4 x10^3/uL (0.0-1.1); MONO % 4 % (0-9); NEUT # 6.3 x10^3uL (1.8-7.7); NEUT % 67 % (31-73); PLATELET COUNT 336 x10^3/uL (140-400); RED BLOOD COUNT 4.96 x10^6/uL (3.50-5.40); RED CELL DISTRIBUTION WIDTH 17.2 % (11.5-14.5); WHITE BLOOD COUNT 9.4 x10^3/uL (4.0-11.0)
[2017-12-12 23:49] LABS: ALBUMIN 3.3 g/dL (3.4-5.0); CREATININE 0.9 mg/dL (0.6-1.0); DIRECT BILIRUBIN 0.1 mg/dL (0.0-0.2); TOTAL BILIRUBIN 0.3 mg/dL (0.2-1.0); TOTAL PROTEIN 7.8 g/dL (6.4-8.2)
[2017-12-12 23:58] LABS: ANISOCYTOSIS SLIGHT; HYPOCHROMIA SLIGHT; MICROCYTOSIS MOD; PLT ESTIMATE ADEQUATE (ADEQUATE)
[2017-12-13 00:05] VITALS: BP 136/89
[2017-12-13] MEDS ORDERED: METF100010 PO (00:12)
[2017-12-14 15:07] LABS: CHLAMYDIA PROBE Negative (Negative)
[2017-12-14 18:07] LABS: HCV ANTIBODY <0.1 s/co ratio (0.0-0.9); HEP A IGM ABDY Negative (Negative)
== END 2017-12-13 00:10 | disposition home or self-care (01) ==
LOC: ER 21:36
DX: B37.3 Candidiasis of vulva and vagina (principal); N39.0 Urinary tract infection, site not specified; N72 Inflammatory disease of cervix uteri; E11.65 Type 2 diabetes mellitus with hyperglycemia; D64.9 Anemia, unspecified; E87.1 Hypo-osmolality and hyponatremia; R74.0 Nonspecific elevation of levels of transaminase and lactic acid dehydrogenase [LDH]
CPT/HCPCS: 36415; 80048; 80074; 80076; 80307; 81001; 81025; 85025; 86593; 86703; 87086; 87491; 87591; 96372; 99284; J0456; J0696; Q0111; Q0162; G0479

== ENCOUNTER 2017-12-13 16:15 | Emergency (ER) | payer OTHER ==
[~2017-12-13] VITALS: Ht 167.6 cm; Wt 140.4 kg
[~2017-12-13 16:15] MED LIST changes: +CEPH-264 PO; +FLUC100T7 PO; +HYDR-79 PO; +METF100010 PO
[2017-12-13] MEDS ORDERED: ASPIRIN 81 MG TAB.CHEW PO ONE (17:15)
[2017-12-13] MEDS ORDERED: IV NORMAL SALINE 1,000ML 1,000 ML IV SCH (17:15)
[2017-12-13 17:41] LABS: BASO # 0.1 x10^3/uL (0.0-0.2); BASO % 1 % (0-3); EOS # 0.1 x10^3/uL (0.0-0.7); EOS % 1 % (0-3); HEMOGLOBIN 11.3 g/dL (12.0-15.5); LYMPH # 1.8 x10^3/uL (1.0-4.8); LYMPH % 19 % (24-48); MEAN CORPUSCULAR HEMOGLOBIN 22 pg (25-35); MEAN CORPUSCULAR HGB CONC 31 g/dL (31-37); MEAN CORPUSCULAR VOLUME 71 fL (79-100); MONO # 0.3 x10^3/uL (0.0-1.1); MONO % 4 % (0-9); NEUT # 6.9 x10^3uL (1.8-7.7); NEUT % 76 % (31-73); PLATELET COUNT 324 x10^3/uL (140-400); RED BLOOD COUNT 5.04 x10^6/uL (3.50-5.40); RED CELL DISTRIBUTION WIDTH 17.4 % (11.5-14.5); WHITE BLOOD COUNT 9.2 x10^3/uL (4.0-11.0)
[2017-12-13 17:48] LABS: CALCIUM 9.2 mg/dL (8.5-10.1); CREATININE 0.8 mg/dL (0.6-1.0); GFR 83.7; POTASSIUM 4.2 mmol/L (3.5-5.1)
[2017-12-13] MEDS ORDERED: PROCHLORPERAZINE 10 MG/2 ML VIAL. IM ONE (18:00)
--- NOTE | 2017-12-13 18:13 | EKG ---
[address] [address] Test Date: 2017-12-13 Test Time: 16:33:29 Pat Name: LINDA ALEMAN Department: Room: Gender: F Clinical Education Coordinator: ESTEBAN : 1985 Requested By: GREG COFFEY Order Number: [id number] Reading MD: Measurements Intervals [place] Rate: 94 P: 42 ID: [id number] QRS: 24 QRSD: 84 T: 26 QT: 356 QTc: 445 Interpretive Statements SINUS RHYTHM QRS(T) CONTOUR ABNORMALITY CONSIDER ANTEROLATERAL MYOCARDIAL DAMAGE POSSIBLY ABNORMAL ECG RI6.01 No previous ECG available for comparison
[2017-12-13 18:20] VITALS: BP 123/64
--- NOTE | 2017-12-13 18:38 | PHYS DOC ---
Past History Past Medical History: Anemia, UTI Past Surgical History: No Surgical History Alcohol Use: None Drug Use: None Adult General Chief Complaint Chief Complaint: CHEST PAIN HPI HPI 32-year-old female presents with chest heaviness. The patient was treated yesterday for cervicitis and possible STD. She was given several antibiotics. After the patient went home, she states that she had nausea and several episodes of vomiting. She continues to have some low level nausea now. After vomiting, the patient developed a central chest heaviness that she rates at 5 out of 10. She was also concerned that they told her her blood sugar was 400 last night. She has not been diagnosed as diabetic in the past. She denies fever or chills. She denies shortness of breath or diaphoresis. She restarted her Metformin last night that was previously prescribed for PCOS. Review of Systems Review of Systems Constitutional: Denies fever or chills [] Eyes: Denies change in visual acuity, redness, or eye pain [] HENT: Denies nasal congestion or sore throat [] Respiratory: Denies cough or shortness of breath [] Cardiovascular: No additional information not addressed in HPI [] GI: Denies abdominal pain. She is still mildly nauseated [] : Denies dysuria or hematuria [] Musculoskeletal: Denies back pain or joint pain [] Integument: Denies rash or skin lesions [] Neurologic: Denies headache, focal weakness or sensory changes [] Endocrine: Denies polyuria or polydipsia [] All other systems were reviewed and found to be within normal limits, except as documented in this note. Current Medications Current Medications Current Medications Medications (Trade) Dose Ordered Sig/Ana Start Time Stop Time Status Last Admin Dose Admin Aspirin (Children'S Aspirin) 324 mg 1X ONCE 12/13/17 17:15 12/13/17 17:16 DC 12/13/17 17:28 324 MG Prochlorperazine Edisylate (Compazine) 10 mg 1X ONCE 12/13/17 18:00 12/13/17 18:04 DC 12/13/17 18:26 10 MG Sodium Chloride 1,000 ml @ 1,000 mls/hr Q1H 12/13/17 17:15 12/13/17 18:14 DC 12/13/17 17:30 1,000 MLS/HR Allergies Allergies Allergies Coded Allergies Type Severity Reaction Last Updated Verified No Known Drug Allergies 01/22/17 No Physical Exam Physical Exam Constitutional: Well developed, well nourished, no acute distress, non-toxic appearance. [] HENT: Normocephalic, atraumatic, bilateral external ears normal, oropharynx moist, no oral exudates, nose normal. [] Eyes: PERRLA, EOMI, conjunctiva normal, no discharge. [] Neck: Normal range of motion, no tenderness, supple, no stridor. [] Cardiovascular:Heart rate regular rhythm, no murmur [] Lungs & Thorax: Bilateral breath sounds clear to auscultation [] Abdomen: Bowel sounds normal, soft, no tenderness, no masses, no pulsatile masses. [] Skin: Warm, dry, no erythema, no rash. [] Back: No tenderness, no CVA tenderness. [] Extremities: No tenderness, no cyanosis, no clubbing, ROM intact, no edema. [] Neurologic: Alert and oriented X 3, normal motor function, normal sensory function, no focal deficits noted. [] Psychologic: Affect normal, judgement normal, mood normal. [] Current Patient Data Vital Signs Vital Signs Date Time Temp Pulse Resp B/P (MAP) Pulse Ox O2 Delivery O2 Flow Rate FiO2 12/13/17 16:30 98.6 91 16 98 Room Air Lab Results Laboratory Tests Test 12/13/17 17:17 12/13/17 18:29 White Blood Count 9.2 x10^3/uL (4.0-11.0) Red Blood Count 5.04 x10^6/uL (3.50-5.40) Hemoglobin 11.3 g/dL (12.0-15.5) L Hematocrit 36.0 % (36.0-47.0) Mean Corpuscular Volume 71 fL (79-100) L Mean Corpuscular Hemoglobin 22 pg (25-35) L Mean Corpuscular Hemoglobin Concent 31 g/dL (31-37) Red Cell Distribution Width 17.4 % (11.5-14.5) H Platelet Count 324 x10^3/uL (140-400) Neutrophils (%) (Auto) 76 % (31-73) H Lymphocytes (%) (Auto) 19 % (24-48) L Monocytes (%) (Auto) 4 % (0-9) Eosinophils (%) (Auto) 1 % (0-3) Basophils (%) (Auto) 1 % (0-3) Neutrophils # (Auto) 6.9 x10^3uL (1.8-7.7) Lymphocytes # (Auto) 1.8 x10^3/uL (1.0-4.8) Monocytes # (Auto) 0.3 x10^3/uL (0.0-1.1) Eosinophils # (Auto) 0.1 x10^3/uL (0.0-0.7) Basophils # (Auto) 0.1 x10^3/uL (0.0-0.2) Sodium Level 136 mmol/L (136-145) Potassium Level 4.2 mmol/L (3.5-5.1) Chloride Level 99 mmol/L (98-107) Carbon Dioxide Level 27 mmol/L (21-32) Anion Gap 10 (6-14) Blood Urea Nitrogen 8 mg/dL (7-20) Creatinine 0.8 mg/dL (0.6-1.0) Estimated GFR (Cockcroft-Gault) 83.7 Glucose Level 293 mg/dL (70-99) H Calcium Level 9.2 mg/dL (8.5-10.1) Troponin I Quantitative < 0.017 ng/mL (0-0.055) Glucose (Fingerstick) 255 mg/dL (70-99) H EKG EKG EKG normal sinus rhythm, rate 94, normal axis, no ST elevation or depression[] Radiology/Procedures Radiology/Procedures PA and lateral chest radiographs 12/13/2017 Clinical History: Chest pain for 24 hours. PA and lateral digital radiographs of the chest were obtained. No previous studies are available for comparison. The cardiac and mediastinal silhouettes are within normal limits in size and configuration. No pulmonary infiltrate is seen. No pleural effusion or pneumothorax is noted. The osseous structures are grossly intact. Impression: No radiographic evidence of active cardiopulmonary disease. Electronically signed by: Cedric Newsome MD (12/13/2017 6:36 PM) [facility][] Course & Med Decision Making Course & Med Decision Making Pertinent Labs and Imaging studies reviewed. (See chart for details) The patient's chest x-ray was unremarkable. Her troponin was negative. Her labs are significant for a blood sugar 293. After a 1 L bolus, weight was 255. The patient is now taking metformin for this new-onset diabetes. Her EKG is unremarkable. She was given 10 mg of Compazine for nausea which was effective. It is likely that her chest discomfort is a result of her vomiting causing esophageal irritation. She will follow with her PCP for her diabetes management. [] Dragon Disclaimer Dragon Disclaimer This electronic medical record was generated, in whole or in part, using a voice recognition dictation system. Departure Departure: Impression: Primary Impression: Chest pain Additional Impression: Diabetes mellitus, new onset Disposition: HOME, SELF-CARE Condition: STABLE Patient Instructions: Diabetes, FAQs, Diabetes Meal Planning Guide Problem Qualifiers GREG COFFEY DO December 13, 2017 18:38
== END 2017-12-13 18:49 | disposition home or self-care (01) ==
LOC: ER 16:15
DX: R07.89 Other chest pain (principal); E11.9 Type 2 diabetes mellitus without complications; Z87.440 Personal history of urinary (tract) infections; Z86.2 Personal history of diseases of the blood and blood-forming organs and certain disorders involving the immune mechanism; Z79.82 Long term (current) use of aspirin
CPT/HCPCS: 36415; 71046; 80048; 82947; 84484; 85025; 93005; 96360; 96372; 99285; J0780; J7030